=== PATIENT | male | born 1950 | race Hispanic/Latino ===

== ENCOUNTER 2017-12-25 09:47 | Outpatient (CLI) | payer MEDICARE ==
--- NOTE | 2017-12-25 11:40 | CT ---
CT THORAX WITHOUT CONTRAST: HISTORY: History of pulmonary nodule. COMPARISON: Chest radiograph performed at [facility] dated 06/09/16 and 05/22/17. FINDINGS: Mild scarring involving both lower lobes is stable. No suspicious pulmonary nodule is identified. T here is an azygous lobe present within the right upper lobe. There are coronary artery and thoracic aorta calcifications. No enlarged lymph nodes are evident. Visualized upper abdomen demonstrates a 1 cm cyst involving the superior pole left kidney. There is nonspecific splenomegaly measuring up to 4.2 cm. No definite acute fracture or subluxation is demonstrated. IMPRESSION: 1. Nonspecific bibasilar lower lobe scarring. 2. No suspicious pulmonary nodule identified. 3. Nonspecific mild splenomegaly. 4. Superior pole right renal cyst. 5. Coronary artery and thoracic aorta calcifications. CODE T
== END 2017-12-25 09:48 | disposition home or self-care (01) ==
LOC: MADCT 09:47
PROVIDERS: ATTEND Internal Medicine
DX: R91.1 Solitary pulmonary nodule (principal); R16.1 Splenomegaly, not elsewhere classified; N28.1 Cyst of kidney, acquired; I70.0 Atherosclerosis of aorta; I70.8 Atherosclerosis of other arteries
CPT/HCPCS: 71250

== ENCOUNTER 2019-12-02 10:15 | Outpatient (CLI) | payer MEDICARE ==
[2019-12-02 11:06] LABS: ALT (SGPT) 16 U/L (8-55); AST (SGOT) 16 U/L (5-34); Alkaline Phosphatase 96 U/L (40-110); Anion Gap 15 mmol/L (10-20); BUN (Urea Nitrogen) 8 mg/dL (8.4-25.7); Bilirubin, Direct 0.7 mg/dL (0.1-0.3); Bilirubin, Total 2.1 mg/dL (0.2-1.2); Calc. Creatinine Clearance 0 mL/min (70-130); Calcium 9.2 mg/dL (7.8-10.44); Carbon Dioxide 24 mmol/L (23-31); Chloride 97 mmol/L (98-107); Estimated GFR-MDRD 52; Globulin 3.1 g/dL (2.4-3.5); Glucose 123 mg/dL (80-115); Magnesium 1.4 mg/dL (1.6-2.6); Potassium 4.5 mmol/L (3.5-5.1); Protein, Total 7.1 g/dL (5.8-8.1); Sodium 131 mmol/L (136-145)
[2019-12-02 11:23] LABS: #Basophils 0.1 thou/uL (0.0-0.2); #Eosinphils 0.2 thou/uL (0.0-0.7); #Lymphocytes 1.6 thou/uL (1.20-3.40); #Monocytes 0.6 thou/uL (0.11-0.59); #Neutrophils 2.6 thou/uL (1.40-6.50); %Basophils 1.5 % (0.0-1.0); %Eosinophils 4.1 % (0.0-10.0); %Lymphocytes 30.8 % (21.0-51.0); %Monocytes 12.2 % (0.0-10.0); %Neutrophils 51.4 % (42.0-75.0); Hemoglobin 14.3 g/dL (14.0-18.0); Mean Corpuscular HGB CONC 32.3 g/dL (32.0-36.0); Mean Corpuscular Volume 95.8 fL (78.0-98.0); Mean Platelet Volume 7.9 fL (7.4-10.4); Platelet Count 91 thou/uL (130-400); RBC Distribution Width 14.3 % (11.5-14.5); Red Blood Cell (RBC) Count 4.62 mill/uL (4.70-6.10); White Blood Cell (WBC) Count 5.1 thou/uL (4.8-10.8)
[2019-12-02 11:25] LABS: Platelet Morphology Comment Appears Decreased
== END 2019-12-02 10:16 | disposition home or self-care (01) ==
LOC: MADLABSP 10:15
PROVIDERS: ATTEND Surgery
DX: Z48.23 Encounter for aftercare following liver transplant (principal)
CPT/HCPCS: 80053; 80197; 82248; 83735; 85025